=== PATIENT | male | born 1945 | race Caucasian/White ===

== ENCOUNTER 2020-10-17 12:02 | Inpatient (IN) | payer BC, MEDICARE, OTHER ==
[~2020-10-17] VITALS: Ht 170.2 cm; Wt 61.2 kg
[2020-10-17] VITALS (7 sets, daily range): BP systolic 57–218; BP diastolic 21–85
--- NOTE | 2020-10-17 12:03 | NUR ---
SEEN AND EXAMINED BY .
--- NOTE | 2020-10-17 12:15 | NUR ---
IV LINE ESTABLISHED BLOOD DRAWN AND SENT TO LAB.
--- NOTE | 2020-10-17 12:23 | NUR ---
SAGGER MAKER AT BEDSIDE FOR XRAY.
[2020-10-17 12:29] LABS: BASOPHILS % (AUTO) 0.1 % (0.0-2.0); EOSINOPHILS % (AUTO) 0.1 % (0.0-6.0); HEMATOCRIT 42 % (39-51); HEMOGLOBIN 13.8 g/dL (13.5-17.5); LYMPHOCYTES # (AUTO) 1.4 /CMM (0.8-4.8); LYMPHOCYTES % (AUTO) 9.1 % (20.0-44.0); MEAN CORPUSCULAR HGB CONC 33 g/dl (31.0-36.0); MEAN CORPUSCULAR VOLUME 95 fL (80-96); MONOCYTES # (AUTO) 1.4 /CMM (0.1-1.30); MONOCYTES % (AUTO) 8.8 % (2.0-12.0); NEUTROPHILS # (AUTO) 12.6 /CMM (1.8-8.9); NEUTROPHILS % (AUTO) 81.9 % (43.0-81.0); PLATELET COUNT (AUTO) 295 /CMM (150-450); RED BLOOD CELL COUNT(AUTO) 4.47 MIL/uL (4.5-6.0); WHITE BLOOD COUNT (AUTO) 15.4 K/uL (4.3-11.0)
[2020-10-17] MEDS ORDERED: IV NS 0.9% 500 ML BAG IV ONE ×2 (12:30→14:30)
[2020-10-17 12:51] LABS: ALANINE AMINOTRANSFERASE 21 U/L (12-78); ALBUMIN 3.9 g/dL (3.4-5.0); ALKALINE PHOSPHATASE 73 U/L (46-116); ASPARTATE AMINOTRANSFERASE 22 U/L (15-37); BILIRUBIN,DIRECT 0.2 mg/dL (0.0-0.2); BILIRUBIN,TOTAL 0.7 mg/dL (0.2-1.0); CALCIUM, SERUM 9.4 mg/dL (8.5-10.1); CARBON DIOXIDE 20 mmol/L (21-32); CHLORIDE 100 mmol/L (98-107); GLUCOSE 162 mg/dL (74-106); POTASSIUM 3.2 mmol/L (3.5-5.1); SODIUM SERUM 136 mmol/L (136-145); TOTAL PROTEIN, SERUM 7.4 g/dL (6.4-8.2)
[2020-10-17 12:56] LABS: UREA NITROGEN, BLOOD 126 mg/dL (7-18)
--- NOTE | 2020-10-17 13:33 | NUR ---
MOVE SHEET SUBMITTED AND CALLED FOR TELE BED.
--- NOTE | 2020-10-17 13:43 | NUR ---
[facility] CALLED FISHER CRAB PAGED.
--- NOTE | 2020-10-17 14:10 | NUR ---
TELE/RN NOTES PATIENT TRANSFERRED FROM ER TO [facility] VIA GURNEY. PATIENT IS ALERT AND ORIENTEDX3, ABLE TO MAKE NEEDS KNOWN. ADMITTED TO ER TODAY DUE TO SYNCOPAL. DX OF N/STEMI AND ACUTE KIDNEY INJURY. HISTORY OF GERD AND PROSTATE ISSUES. IV ACCESS ON RIGHT LOWER FOREARM #18G. BED ON LOWEST POSITION, BED RAILS SIDE UP X2, BED ALARM.
--- NOTE | 2020-10-17 14:22 | NUR ---
PT IS BACK FROM THE CT SCAN.
[2020-10-17] MEDS ORDERED: ASPIRIN 325 MG TABLET PO ONE (14:30)
[2020-10-17] MEDS ORDERED: ASPIRIN 325 MG TABLET ONE (14:36)
[2020-10-17] MEDS ORDERED: ONDANSETRON HCL/PF 4 MG/2 ML VIAL ONE (14:38)
[2020-10-17] MEDS ORDERED: ONDANSETRON HCL/PF 4 MG/2 ML VIAL IV ONE (15:00)
--- NOTE | 2020-10-17 15:07 | NUR ---
LAB CALLED PT COVID RESULT NEGATIVE (-).
--- NOTE | 2020-10-17 15:08 | NUR ---
room 310-1
--- NOTE | 2020-10-17 15:08 | NUR ---
ROOM GIVEN 310-1
--- NOTE | 2020-10-17 15:19 | NUR ---
REPORT GIVEN TO ANGEL HERNANDEZ FOR CELESTE.
[2020-10-17] MEDS ORDERED: Z GUARD REMEDY 2 OZ OINT TP PRN (15:30)
[2020-10-17] MEDS ORDERED: IV NS 0.9% 1,000 ML IV PRN (15:30)
[2020-10-17] MEDS ORDERED: ACETAMINOPHEN 325 MG TABLET PO PRN (15:30)
[2020-10-17] MEDS ORDERED: HYDROCODONE/APAP 5/325MG TABLET PO PRN (15:30)
[2020-10-17] MEDS ORDERED: ONDANSETRON HCL/PF 4 MG/2 ML VIAL IVP PRN (15:30)
[2020-10-17] MEDS ORDERED: MAGNESIUM HYDROXIDE 30 ML UDC PO PRN (15:30)
[2020-10-17] MEDS ORDERED: MAG HYDROX/AL HYDROX/SIMETH 30 ML UDC PO PRN (15:30)
[2020-10-17] MEDS ORDERED: ENOXAPARIN SODIUM 30 MG/0.3 ML DISP.SYRIN SQ SCH (16:00)
[2020-10-17] MEDS ORDERED: CEFTRIAXONE 1 G in IV D5W 50 ML IV SCH (16:00)
[2020-10-17 16:07] LABS: BILIRUBIN,URINE Negative (NEGATIVE); COLOR,URINE YELLOW (YELLOW); LEUKOCYTE ESTERASE ,URINE Negative (NEGATIVE); NITRITE, URINE Negative (NEGATIVE); PROTEIN,URINE Negative (NEGATIVE); UGLUCOSE Negative (NEGATIVE); UROBILINOGEN,URINE 0.2 EU/dL (0.2)
[2020-10-17 16:19] LABS: WBC,URINE 0-2 /HPF (0-3)
[2020-10-17 16:20] LABS: BACTERIA,URINE Few /HPF (None Seen); HYALINE CASTS, URINE Few /LPF (None Seen); SQUAMOUS EPITHELIAL CELL,UR Few /HPF (None Seen)
--- NOTE | 2020-10-17 18:00 | NUR ---
TELE/RN NOTES RELAY RESULT FOR TELE MONITOR, ITS RUN OF VTACH, NOW HE IS TACHY 115 DR. ANNA SAID NSVT. RELAY EKG RESULT DR. ANNA, NO NEW ORDER AT THIS TIME. WILL CONTINUE TO MONITOR.
--- NOTE | 2020-10-17 18:00 | NUR ---
TELE/RN NOTES RELAY RESULT FOR TELE MONITOR AND EKG RESULT DR. ANNA, NO NEW ORDER AT THIS TIME. WILL CONTINUE TO MONITOR. Addendum: 10/17/20 at 1841 by MIRZA DIA RN DUPLICATE
[2020-10-17] MEDS ORDERED: HEPARIN INFUSION/D5W 500 ML IV PRN (18:30)
--- NOTE | 2020-10-17 18:43 | NUR ---
TELE/RN NOTES NEW ORDER RECEIVED AND TO START HEPARIN DRIP PER PROTOCOL COMMUNICATED WITH PHARMACY HEPARIN FORM COMPLETED AND FAXED TO PHARMACY AWAITING FOR COAGULATION LAB RESULTS. TO START THE HEPARIN.
[2020-10-17] MEDS ORDERED: METOPROLOL TARTRATE 50 MG TABLET PO SCH (18:49)
[2020-10-17 19:09] LABS: PHOSPHORUS 4.2 mg/dL (2.5-4.9)
--- NOTE | 2020-10-17 19:22 | NUR ---
TELE/RN CLOSING NOTES PATIENT IS ALERT AND ORIENTED X3. PATIENT IN NO APPARENT RESPIRATORY DISTRESS NOTED. NO COMPLAINED OF PAIN AT THIS TIME. TELE MONITOR SINUS TACHY 118 BPM. WILL ENDORSED TO NUMERICAL CONTROL TOOL PROGRAMMER FOR CELESTE.
[2020-10-17 19:23] LABS: THYROID STIMULATING HORMONE 1.242 uIU/mL (0.358-3.74)
--- NOTE | 2020-10-17 19:30 | NUR ---
MS/TELE/RN RECEIVE PATIENT IN ROOM LYING IN BED AWAKE, ALERT, ORIENTED, COMFORTABLE, NO C/O PAIN, NO DISTRESS NOTED, CALL LIGHT IN REACH, FALL PRECAUTIONS PER PROTOCOL, WILL MONITOR.
--- NOTE | 2020-10-17 20:00 | NUR ---
MS/TELE/RN STARTED A NEW IV AT LEFT HAND G 22 FOR THE HEPARIN DRIP.
--- NOTE | 2020-10-17 21:17 | NUR ---
MS/TELE/RN HEPARIN DRIP WAS STARTED ORDERED WITH ANGELINA MELGOZA RN WITNESS. WILL MONITOR PER PROTOCOL.
--- NOTE | 2020-10-17 22:30 | NUR ---
Admitted from [address] [place] [address]# 310, S/P code blue with ROSC. ( 2 amps .Epinephine given during the code). Unresponsive,orally intubated ,clammy,cold,diaphoretic but normothermic,tatachypneic,with deep labored inspiratory effort(using accesory muscles),received on Heparin drip @ 900 units/hr..qjgdqcmMD=327/74,HR=91. 2300 OGT inserted,payne catheter inserted,stat CXR done. 2315 BP=57/21 ,order obtained for Pressors.Propofol drip started for sedation,(stillwith labored breathing ), pulse oximeter not picking up good signal (unable to get acurate reading of O2 saturation),RT will do ABG.
--- NOTE | 2020-10-17 22:35 | NUR ---
RAPID RESPONSE @2210 IN 3WEST, PT IS UNRESPONSIVE. CODE BLUE @ 2215 . PERFORMED CPR . PT ORALLY INTUBATED WITH ETT 7.5 SECURED @ 24CM LIP LINE. CO2 DETECTOR COLOR CHANGED POSITIVE. EQUAL BILATERAL BREATH SOUNDS AND CHEST RISE NOTED. SUCTIONED LARGE AMOUNT OF THICK BLOODY SECRETIONS. PT TRANSPORTED TO ICU, [facility] WITH THE SETTINGS OF AC 24, 500, PEEP 5 FIO2 100% VENT PLUGGED INTO RED OUTLET. VENT ALARM SET AND AUDIBLE AMBU BAG AT BEDSIDE. ABG AFTER 1HR, WILL CONTINUE TO MONITOR PT T/O SHIFT.
[2020-10-17] MEDS ORDERED: PROPOFOL 100 ML ONE (22:54)
[2020-10-17] MEDS ORDERED: NOREPINEPHRINE 8MG/250ML RTU 250 ML IV ONE (23:20)
--- NOTE | 2020-10-17 23:20 | NUR ---
OGT connected to LIWS ,instantly drained fresh blood (500 ml. total), MD ellis made aware,ordered to stop Heparin drip,stopped drip right away. 0535GX=948/85 ,Levophed drip turned off.
[2020-10-17] MEDS ORDERED: NOREPINEPHRINE 8 MG in IV NS 0.9% 242 ML IV PRN (23:30)
[2020-10-17] MEDS ORDERED: PROPOFOL 100 ML IV PRN (23:30)
--- NOTE | 2020-10-17 23:40 | NUR ---
ABG relayed to Ghazala Guevara AUDIOVISUAL TECHNICIAN, PH=7.22, Co2=30.6,MX4=453,HCO3=12.4,SAT=99 % on FIO@ 100% vent .settings. NAHCO3 1 amp.IVP was ordered to be given.
[2020-10-17 23:44] LABS: ABG BASE EXCESS -13.9 mmol/L; ABG OXYGEN SATURATION 99.5 % (92.0-98.5); ABG PCO2 30.6 mmHg (35.0-45.0); ABG PH 7.227 (7.350-7.450); ABG PO2 437.3 mmHg (75.0-100.0); AaDO2 245.1 mmHg; COHb 0.3 % (0.5-1.5); MetHb 0.2 % (0.0-1.5); PEEP,BG 5 cm H2O; SITE, ABG Right Radial; VT, ABG 500 mL
[2020-10-18] VITALS (10 sets, daily range): BP systolic 65–232; BP diastolic 38–79
--- NOTE | 2020-10-18 | NUR ---
Remains tachypneic,labored breathing .BP remains labile,titrating levohed drip and Propofol drip.
[2020-10-18 00:08] LABS: BASOPHILS % (AUTO) 0.2 % (0.0-2.0); EOSINOPHILS % (AUTO) 0.1 % (0.0-6.0); HEMATOCRIT 28 % (39-51); HEMOGLOBIN 9.2 g/dL (13.5-17.5); LYMPHOCYTES # (AUTO) 2.8 /CMM (0.8-4.8); LYMPHOCYTES % (AUTO) 17.1 % (20.0-44.0); MEAN CORPUSCULAR HGB CONC 33 g/dl (31.0-36.0); MEAN CORPUSCULAR VOLUME 96 fL (80-96); MONOCYTES # (AUTO) 1.6 /CMM (0.1-1.30); NEUTROPHILS # (AUTO) 11.8 /CMM (1.8-8.9); NEUTROPHILS % (AUTO) 72.6 % (43.0-81.0); PLATELET COUNT (AUTO) 258 /CMM (150-450); RED BLOOD CELL COUNT(AUTO) 2.94 MIL/uL (4.5-6.0); WHITE BLOOD COUNT (AUTO) 16.3 K/uL (4.3-11.0)
[2020-10-18 00:18] LABS: CALCIUM, SERUM 8.1 mg/dL (8.5-10.1); CARBON DIOXIDE 17 mmol/L (21-32); CHLORIDE 105 mmol/L (98-107); GLUCOSE 261 mg/dL (74-106); POTASSIUM 3.7 mmol/L (3.5-5.1); SODIUM SERUM 138 mmol/L (136-145)
[2020-10-18 00:37] LABS: ALANINE AMINOTRANSFERASE 26 U/L (12-78); ALBUMIN 2.8 g/dL (3.4-5.0); ALKALINE PHOSPHATASE 54 U/L (46-116); ASPARTATE AMINOTRANSFERASE 32 U/L (15-37); BILIRUBIN,TOTAL 0.4 mg/dL (0.2-1.0); MAGNESIUM 2.2 mg/dL (1.8-2.4); PHOSPHORUS 6.7 mg/dL (2.5-4.9); TOTAL PROTEIN, SERUM 5.4 g/dL (6.4-8.2)
[2020-10-18 00:42] LABS: UREA NITROGEN, BLOOD 128 mg/dL (7-18)
[2020-10-18 00:44] LABS: THYROID STIMULATING HORMONE 3.225 uIU/mL (0.358-3.74)
[2020-10-18] MEDS ORDERED: IV NS 0.9% 1,000 ML IV PRN (00:45)
--- NOTE | 2020-10-18 00:46 | NUR ---
MS/TELE/RN AT AROUND 2200, PATIENT WANTED TO GO TO THE BATHROOM, ADVISED THE PATIENT TO STAY IN BED, EDUCATED ABOUT BLEEDING RISK HE WAS ON HEPARIN DRIP AND NSTEMI DIAGNOSIS, BUT PATIENT INSISTED IN GOING TO THE BATHROOM. JASMINE WALLACE THEN HELPED THE PATIENT TO THE BATHROOM AND STAYED WITH THE PATIENT. MINUTES LATER, JASMINE WALLACE ASKED HELP THE PATIENT WAS PALE AND LOOKED WEAK, I FOUND PATIENT SITTING ON THE TOILET VERY PALE, RAPID RESPONSE WAS SUBSEQUENTLY CALLED AT AROUND 2210, RT'S ARRIVED THE ROOM, PUT PATIENT ON A SIMPLE MASK O2 VIA PORTABLE O2 TANK, HELPED PATIENT TO THE WHEELCHAIR AND NOTED PATIENT TO BE NON RESPONSIVE, LUZ MARIA SOLANO WAS CALLED AT 2215. LUZ MARIA SOLANO TEAM ARRIVED, CPR WAS PROVIDED, EPINEPHRINE WAS GIVEN, THE PATIENT WAS INTUBATED. PATIENT WAS REVIVED AND WAS TRANSFERRED TO ICU ROOM 257 AT AROUND 2225. BEDSIDE REPORT WAS GIVEN TO ANGEL LUA. DR ANDREA, AMIRA, , THE INFRASTRUCTURE SOFTWARE ENGINEER IN THE CHART, WAS THEN CALLED TO NOTIFY ABOUT THE TRANSFER, NO ANSWER, LEFT MESSAGE.
[2020-10-18] MEDS ORDERED: VANCOMYCIN 1 GM in IV D5W 250ml IV ONE (01:00)
[2020-10-18] MEDS ORDERED: VANCOMYCIN 1 GM VIAL ONE (01:15)
--- NOTE | 2020-10-18 01:45 | NUR ---
Started to moon progressively 60's-30's.
--- NOTE | 2020-10-18 01:45 | NUR ---
Updated Ghazala Guevara SHEET HANGER of patient's status(BP still labile and still tachypneic with labored breathing and that Levopheddrip and propofol drip is being titrated,updated her of low urine output,made her aware of latest HGB=of 9.2 ,troponin of 1.88 and that bleeding from OGT has stopped. lactic acid= 6.6 ,SHEET HANGER lesley was called and made aware ordered NSS bolus to be given.
--- NOTE | 2020-10-18 01:50 | NUR ---
Asystolic,Code Blue was called.
[2020-10-18] MEDS ORDERED: IV NS 0.9% 1,000 ML IV ONE (02:00)
--- NOTE | 2020-10-18 02:00 | NUR ---
Next of kin that was listed in the face sheet was called ( Dr.Neal Dumont tel# ,no answer,jus voice mail, left message.
--- NOTE | 2020-10-18 02:00 | NUR ---
briefly gained back pulse. ER MD Cohen inserted central line (triple lumen cath.) via right femoral area.
--- NOTE | 2020-10-18 02:12 | NUR ---
Adystolic again ,Coded patient . [address] Crain.
[2020-10-18] MEDS ORDERED: DEXTROSE 50%-WATER 50 ML DISP.SYRIN IV ONE (02:19)
[2020-10-18] MEDS ORDERED: ATROPINE SULFATE 1 MG/10 ML DISP.SYRIN IV ONE (02:19)
[2020-10-18] MEDS ORDERED: EPINEPHRINE (1:10,000) SYRINGE 1 MG/10 ML DISP.SYRIN IVP ONE ×2 (02:19)
[2020-10-18] MEDS ORDERED: CALCIUM CHLORIDE 1,000 MG/10 ML DISP.SYRIN IV ONE (02:19)
[2020-10-18] MEDS ORDERED: SODIUM BICARBONATE SYR 50 MEQ/50 ML DISP.SYRIN IV ONE ×2 (02:19)
--- NOTE | 2020-10-18 02:32 | NUR ---
Called Mental Health Program Manager's office, spoke to ,patient is not a ME case,body released.
--- NOTE | 2020-10-18 02:33 | NUR ---
Called [facility] .spoke to Christos, body is eligible for donation . case # [id number].
[2020-10-18] MEDS ORDERED: PIPERACILLIN /TAZOBACTAM 3.375 G in IV D5W 50 ML IV SCH ×2 (06:00→12:00)
== END 2020-10-18 02:20 | DRG 871 ==
LOC: ER 12:05 → TELE 15:12 → ICU 22:25
PROVIDERS: ADMIT Internal Medicine; ATTEND Internal Medicine
PROC: 5A1935Z Respiratory Ventilation, Less than 24 Consecutive Hours (ICD-10-PCS; principal; 2020-10-18)
PROC: 0BH17EZ Insertion of Endotracheal Airway into Trachea, Via Natural or Artificial Opening (ICD-10-PCS; 2020-10-18)
PROC: 5A2204Z Restoration of Cardiac Rhythm, Single (ICD-10-PCS; 2020-10-18)
PROC: 06HM33Z Insertion of Infusion Device into Right Femoral Vein, Percutaneous Approach (ICD-10-PCS; 2020-10-18)
PROC: B54BZZA Ultrasonography of Right Lower Extremity Veins, Guidance (ICD-10-PCS; 2020-10-18)
DX: A41.9 Sepsis, unspecified organism (principal); N17.0 Acute kidney failure with tubular necrosis; I21.A1 Myocardial infarction type 2; E87.2 Acidosis; I47.2 Ventricular tachycardia; Z20.822 Contact with and (suspected) exposure to COVID-19; R56.9 Unspecified convulsions; E87.6 Hypokalemia; I46.9 Cardiac arrest, cause unspecified; K21.9 Gastro-esophageal reflux disease without esophagitis
CPT/HCPCS: 31720; 36415; 36600; 70450-TC; 71045-TC; 80048-TC; 80053-TC; 80076-TC; 81001; 82803-TC; 82962-TC; 83605-TC; 83735-TC; 84100-TC; 84439-TC; 84443-TC; 84478-TC; 84484-TC; 85025-TC; 85610-TC; 85730-TC; 86850-TC; 87081-TC; 93307-TC; 94002-TC; A6403; C1751; C9803; G0378; J0171; J0461; J0696; J1644; J1650; J2405; J2543; J3370; J3490; J7030; J7040; J7060